=== PATIENT | female | born 1960 | race Caucasian/White ===

== ENCOUNTER → 2016-10-21 | Outpatient (CLI) | payer OTHER | END | disposition home or self-care (01) | LOC: PCVCIMAG 11:35 | PROVIDERS: ATTEND Internal Medicine | DX: R19.09 Other intra-abdominal and pelvic swelling, mass and lump (principal); Z98.890 Other specified postprocedural states | CPT/HCPCS: 93926 ==

== ENCOUNTER → 2016-11-29 | Outpatient (CLI) | payer OTHER | END | disposition home or self-care (01) | LOC: PCVCIMAG 13:43 | PROVIDERS: ATTEND Internal Medicine | DX: I25.10 Atherosclerotic heart disease of native coronary artery without angina pectoris (principal); E78.00 Pure hypercholesterolemia, unspecified; Z95.5 Presence of coronary angioplasty implant and graft | CPT/HCPCS: 93308 ==

== ENCOUNTER → 2018-05-12 | Outpatient (CLI) | payer OTHER ==
--- NOTE | 2018-05-12 12:04 | PCVCIMAG ---
APPROVED REPORT Imaging Protocol: Rest Tc-99m/Stress Tc-99m 1 day Study performed: 05/12/2018 08:48:45 Indication: CAD, Chest Pain Patient Location: Out-Patient Stress Nurse: Isatu Borden RN NM Tech:Yosef Jiménez NMRICCARDOB Ht: 5 ft 6 in Wt: 135 lbs BSA: 1.69 m2 HR: 58 bpm BP: 179/74 mmHg BMI: 21.7 Rhythm: SB Medical History Medical History: CAD, Age, Hyperlipidemia, RA Medications: ASA, Effient, Linzess, Methotrexate, Protonix, Sonato, Atorvastatin Allergies: Sulfa Previous Cardiac Procedures: PCI 2-2016, LAD Stent Pretest Chest Pain Characteristics: Midsternal Chest Pressure 2/10 Exercise History: Physically active Resting Data Rest SPECT myocardial perfusion imaging was performed in supine position 45 minutes following the intravenous injection of 10.7 mCi of Tc-99m Sestamibi. Time of rest injection: 814 Date: 05/12/2018 Administration Route: IV Administration Site: Right AC Pharmacologic Stress Pharmacologic stress test was performed by injecting Regadenoson 0.4 mg IV push over 10-15 seconds immediately followed by the intravenous injection of 32.8 mCi of Tc-99m Sestamibi. Time of stress injection: 929 Date: 05/12/2018 Administration Route: IV Administration Site: Right AC Gated Stress SPECT was performed 45 minutes after stress injection. The images were gated to evaluate regional wall motion and calculate left ventricular ejection fraction. Stress Test Details Stress Test: Exercise stress testing was performed using a Florentino protocol. HRMax Heart Rate (APMHR): 161 bpm Resting HR: 58 bpmTarget HR (85% APMHR): 136 bpm Max HR Achieved: 164 bpm % of APMHR: 101 Recovery HR: 76 bpm HR response to stress: Normal HR response to stress BP Resting BP: 179/74 mmHg Recovery BP: 145/69 mmHg BP response to stress: Normal blood pressure response to stress. ECG Resting ECG: Sinus Bradycardia Stress ECG: Sinus Tachycardia ST Change: Horizontal ST depression Maximum ST Deviation: 0.5 mm Arrhythmia: PAC's Recovery ECG: Sinus Rhythm Recovery ST Change: Nondiagnostic ST abnormalities Recovery ST Deviation: 0 mm Clinical Reason for Termination: Maximal effort, Fatigue, Chest Pain Stress Symptoms: Chest pain Exercise duration: 10 min 01 sec Exercise capacity: 13.40 METs Overall Exercise Capacity for Age: Normal Scale: Active Angina Score: Exercise-Limiting Chest pressure, burning pain starting at 8 min through to end of walk, 7/10 score. Pain resolved with 3 minute rest. Pressure continued and radiated to neck into post recovery period, evenually returning to baseline. Stress ECG Conclusion 1. Subjectively abnormal with reproduction of exertional chest discomfort 2. Echocardiographically negative for ischemia Tompkins Treadmill Score is -0.5 which is Moderate risk. Study Data Post stress, the left ventricular ejection was 75%.. SSS: 2 SRS: 0 SDS: 2 TID = 0.79. Perfusion There is a medium area of moderately reduced uptake in the apical segment of the adjacent wall which is seen on the stress images as well as the resting images. This area thickens and moves normally and is most consistent with attenuation artifact although chronically ischemic tissue cannot be excluded although lower likelihood. Wall Motion Normal left ventricular wall motion. Nuclear Conclusion ECG Findings: negative for ischemia Clinical Findings: positive for ischemia Nuclear Findings: negative for ischemia Exercise Capacity: normal Left Ventricular Function: normal 1. Intermediate risk study based on a fixed defect with symptoms developing on exertion. Clinical correlation suggested. Interpreted by: David Reyes MD Electronically Approved: 05/12/2018 12:03:23 <Conclusion> 1. Subjectively abnormal with reproduction of exertional chest discomfort 2. Echocardiographically negative for ischemia
== END | disposition home or self-care (01) ==
LOC: PCVCIMAG 16:26
PROVIDERS: ATTEND Internal Medicine
DX: I25.10 Atherosclerotic heart disease of native coronary artery without angina pectoris (principal); E78.5 Hyperlipidemia, unspecified
CPT/HCPCS: 78452; 93017; A9500